=== PATIENT | female | born 1970 | race Caucasian/White ===

== ENCOUNTER 2024-02-16 08:53 | Outpatient (CLI) | payer OTHER, SELFPAY ==
--- NOTE | ~2024-02-16 | CT_ITS ---
EXAMINATION: CT sinus wo con DATE: 02/16/2024 09:45 INDICATION: Sinusitis TECHNIQUE: Computed tomography (CT) of the paranasal sinuses was performed without contrast. Iterativ e reconstruction technique was employed. Exam dose: 401.69 mGy-cm total exam DLP. COMPARISON: None FINDINGS: There is rightward deviation of the nasal septum. There is prominent soft tissue swelling o f the inferior nasal turbinates bilaterally. The ostiomeatal units are patent. There is a single opacified posterior left ethmoid air cell. Otherwise the paranasal sinuses are normally developed and aerated. The mastoid air cells are well-developed and aerated bilaterally. IMPRESSION: Prominent soft tissue swelling of the inferior nasal turbinates Rightward deviation of nasal septum Opacified posterior left ethmoid air cell; the paranasal sinuses, ostiomeatal units and mastoid air c ells otherwise are normally developed and aerated Reviewed, dictated and finalized at Location [facility]. Reviewed, dictated and finalized at location B. IMPRESSION: Prominent soft tissue swelling of the inferior nasal turbinates Rightward deviation of nasal septum Opacified posterior left ethmoid air cell; the paranasal sinuses, ostiomeatal u nits and mastoid air cells otherwise are normally developed and aerated
== END 2024-02-16 08:54 ==
LOC: GOSHIMG 08:55
PROVIDERS: PCP Family Medicine; Visit Provider Otolaryngology
DX: R09.81 Nasal congestion (principal); J34.2 Deviated nasal septum
CPT/HCPCS: 70486

== ENCOUNTER 2025-06-09 08:08 | Outpatient (CLI) | payer OTHER, SELFPAY ==
--- NOTE | ~2025-06-09 | DEXA_ITS ---
Bone Density Report Name: AYAH SARGENT Age: 55 Sex: Female Ethnicity: White Date of : 1970 Indication: postmenopausal; screening for osteoporosis; prior fracture; Referring Provider: GODFREY VILLALOBOS Study: Bone densitometry was performed. Exam Date: June 09, 2025 Accession number: [id number] Bone Density: Region BMD T-score Z-score Classification AP Spine(L1-L4) 0.928 -1.1 0.1 Osteopenia Femoral Neck (Right) 0.651 -1.8 -0.7 Osteopenia Total Hip (Right) 0.871 -0.6 0.1 Normal World Health Organization criteria for BMD impression classify patients as: Normal (T-score at or above -1.0), Osteopenia (T-score between -1.0 and -2.5), or Osteoporosis (T-score at or below -2.5). 10-year Fracture Risk: FRAX not reported because: Prior hip or vertebral fracture Clinical Information Provided by Patient: Have had a previous hip or vertebral fracture Has had a low trauma fracture Smokes Has used the following medications: Calcium Patient maximum height was 62 Menopause Age: 49 Drinks caffeinated beverages Onset of menses at age 11 Number of children 2 Impression: The patient has low bone mass, based on the Right Femoral Neck T-score. The patient has risk factors, including: smoking, previous fracture. Discussion: INCREASED RISK OF FRACTURE DUE TO HISTORY OF FRACTURE. The patient's previous fracture puts the patient at high risk of a future fracture. In untreated patients, the risk of osteoporotic fracture increases approximately two-fold for each 1.0 SD decrease in T-score. Low bone density is not the only risk factor for fracture; also consider factors such as patient's age, frailty or poor health, risk of falling, risk of injury, previous osteoporotic fracture, family history of osteoporosis, cigarette smoking, low body weight, etc. Not everyone with a low trauma fracture has osteoporosis; osteomalacia and other metabolic bone disorders should also be considered. Patients who have osteoporosis should be evaluated for specific diseases and conditions (secondary causes) that may cause or contribute to bone loss and fracture risk. National Osteoporosis Foundation (NOF) recommends pharmacologic intervention for patients with a prior hip or vertebral fracture regardless of BMD T-score. The patient should follow a healthful lifestyle (good nutrition with adequate calcium and vitamin D, and appropriate weight-bearing exercise). Follow-Up: Consider a repeat BMD and Vertebral Fracture Assessment (VFA) exam in 2 years or sooner if medically necessary, to reassess this patient's status. Reported by: ILNDA on 06/09/2025 8:43:00 AM. Reviewed, dictated and finalized at location A.
--- NOTE | ~2025-06-09 | MM_ITS ---
EXAMINATION: MM screening rosana BI w leslie HISTORY: Screening TECHNIQUE: Craniocaudal and mediolateral oblique 3-D tomosynthesis images were obtained and synthetic 2-D images were generated. CAD analysis was submitted and interpreted. COMPARISON: 09/20/2014. BREAST PARENCHYMAL COMPOSITION: The breasts are heterogeneously dense, which may obscure small masses . FINDINGS: There is no evidence of suspicious mass, calcification, or architectural distortion to sug gest malignancy in either breast. IMPRESSION: 1. No mammographic evidence of malignancy. 2. Recommend routine screening mammography in one year. BI-RADS Category 1: Negative Reviewed, dictated and finalized at location B.
--- OUTSIDE RECORDS SUMMARY | 2025-06-09 08:16 | XMS_ITS | Patient Health Record ---
Author Organization [facility] [place] ([address]) Address [address] [place] [address] Care Team Providers Care Utility Helicopter Repairer Name Role Phone Mitch GRIFFITH, Chaparro Primary Care Provider Min To Unavailable [phone] Dr. Delmar Rodriguez Unavailable [phone] Allergies Allergen (clinical drug ingredient) Drug/Non Drug Allergy documented on EMR Reaction Allergy Type Onset Date Status penicillamine penicillAMINE Unknown Drug Allergy Active codeine Codeine Vomiting Drug Allergy Active Reason For Referral No Information Medications Medication SIG (Take, Route, Frequency, Duration) Notes Start Date End Date Status CeleXA *Please review a nd pick correct strength-formulati on from Sellobuyan options. If intended option is not shown, discontinue and re-order from Quick Search* Active Spironolactone *Please review a nd pick correct strength-formulati on from Plan B Acqusitionsspan options. If intended option is not shown, discontinue and re-order from Quick Search* Active Ondansetron 4 MG 1 tab Orally Once a day; Duration: 30 days As needed for migraine 06/10/2024 Active FLUTICASONE NASAL 50 mcg/inh 2 spray(s) in each nostril 2 times a day; Duration: 30 days Active Fexofenadine HCl 180 MG 1 tablet Orally Once a day; Duration: 30 days 08/16/2024 Active Cetirizine HCl 10 MG 1 tab(s) orally once a day; Duration: 30 days 04/19/2024 Active NASAL WASHES N/A as directed intranasally as needed; Duration: 30 days Active Fluticasone Propionate 50 MCG/ACT 2 spray(s) in each nostril 2 times a day; Duration: 30 days 04/19/2024 Active CETIRIZINE 10 mg 1 tab(s) orally once a day; Duration: 30 days Active Rizatriptan Benzoate 10 MG 1 tablet Orally once, may repeat x1 after 2-4 hours; Duration: 30 days As needed for migraine 06/10/2024 Active Social History Tobacco Use: Social History Observation Description Date Details (start date - stop date) Never Smoker NA - NA Smoking Smart Form: Question Answer Notes Are you a: never smoker Additional Findings:Tobacco Non-User Current non -smoker Tobacco Control (Standard) Question Answer Notes Tobacco use: Nonsmoker Problems Problem Type SNOMED Code ICD Code Onset Dates Problem Status W/U Status Risk Notes Problem Allergy to penicillin (52756607) Allergy status to penicillin (Z88.0) Active confirmed Problem Chronic migraine without aura, non-refractory (disorder) (270428368935344) Migraine without aura, not intractable, without status migrainosus (G43.009) Active confirmed Problem Migraine with aura (5815021) Migraine with aura, not intractable, without status migrainosus (G43.109) Active confirmed Problem Chronic migraine without aura, non-intractable (203724449453025) Chronic migraine without aura, not intractable, without status migrainosus (G43.709) Active confirmed Problem Chronic allergic conjunctivitis (43266863) Other chronic allergic conjunctivitis (H10.45) Active confirmed Problem Allergic rhinitis caused by pollen (disorder) (28231351) Allergic rhinitis due to pollen (J30.1) Active confirmed Problem Allergic rhinitis (37038368) Other allergic rhinitis (J30.89) Active confirmed Problem Allergic rhinitis caused by animal hair and dander (248655246999481) Allergic rhinitis due to animal (cat) (dog) hair and dander (J30.81) Active confirmed Problem Headache (71952889) Headache, unspecified (R51.9) Active confirmed Vital Signs Oximetry 96 % 08/16/2024 Blood pressure diastolic 81 mm Hg 08/16/2024 Height 62 in 08/16/2024 Blood pressure systolic 114 mm Hg 08/16/2024 Weight 114.2 lbs 08/16/2024 BMI 20.89 kg/m2 08/16/2024 Encounters Encounter Location Date Provider Diagnosis [facility] [address] [place] [address] 08/04/2024 Delmar Rodriguez [address] [address] 06/10/2024 Delmar Rodriguez Migraine without aur a, not intractable, without status migrainosus G43.[address] [address] 08/16/2024 Min March Allergic rhinitis du e to pollen J30.1 ; Allergic rhinitis due to animal (cat) (dog) hair and dander J30.81 ; Other allergic rhinitis J30.89 ; Other chronic allergic conjunctivitis H10.45 ; Allergy status to penicillin Z88.0 and Headache, unspecified R51.9 Assessments Encounter Date Diagnosis (ICD Code) Assessment Notes Treatment Notes Treatment Clinical Notes Section Notes 06/10/2024 Migraine without aura, not intractable, without status migrainosus (ICD-10 - G43.009) -Abortive treatment plan: Rizatriptan 10 mg. Ondansetron ODT 4 mg 1 pill once prn migraine. #15 with 1 refill. Patient counseled r.e. potential side effects.-Prevent arturo treatment plan: Discussed magnesium, riboflavin. For now we will focus on finding an effective abortive medication and not prescribe preventive medication. -Educated the patient on migraine lifestyle recommendations. I recommended the following measures: avoid known triggers of migraine, drink > 100 fluid ounces of non-caffeinated fluid daily, limit caffeine to 2 servings/day, sleep 7-8 hours/night and address any sleep concerns with us and report symptoms of snoring or fatigue; healthy management of stress; avoid treating headaches more than 2 days/week with abortive medication unless approved in treatment plan; can take Riboflavin 400 mg and Magnesium 500 mg daily as supplements; keep scheduled follow-up appointments 08/16/2024 Allergic rhinitis due to pollen (ICD-10 - J30.1) Yaquelin clearly suffers from atopic disease based upon our skin testing and clinical history. Accordingly, we have introduced a new, aggressive medication regimen, discussed nasal washes and allergy-specific avoidance measures. She is currnently happy with currnet control. Noted increased sleepiness with Zyrtec so advised switch to Allyn. Otherwise consider SCIT if symptoms worsen. Return in one year for E&M 08/16/2024 Allergic rhinitis due to animal (cat) (dog) hair and dander (ICD-10 - J30.81) Follow allergen avoidance, meds and consider SCIT as an adjunctive treatment to current regimen 08/16/2024 Other allergic rhinitis (ICD-10 - J30.89) Follow allergen avoidance, meds and consider SCIT as an adjunctive treatment to current regimen 08/16/2024 Other chronic allergic conjunctivitis (ICD-10 - H10.45) Given ocular signs and symptoms I encouraged allergy avoidance measures and meds as above. If symptoms persist, consider adding additional medications including intraocular antihistamine/ma st cell stabilizer, PRN and consider SCIT as an adjunctive measure 08/16/2024 Allergy status to penicillin (ICD-10 - Z88.0) Reports rash as a child after taking PCN. Told by mom to avoid since. Details otherwise vague. Would highly consider PCN testing. Otherwise, continue absolute avoidance 08/16/2024 Headache, unspecified (ICD-10 - R51.9) Lifelong history of headaches. Continue with Dr. Rodriguez Plan Of Treatment No Information Insurance Providers Payer Name Payer Address Payer Phone Subscriber Number Group Number Insured Name Patient Relationship to Insured Coverage Start Date Coverage End Date [facility] [address] [place] [address] [id number] Desirae Yaquelin carrillo Self - patient is the insured 4 Medical (General) History Medical History History ICD Code Allergic rhinitis due to pollen J30.1 Allergic rhinitis due to animal (cat) (d og) hair and dander J30.81 Other allergic rhinitis J30.89 Other chronic allergic conjunctivitis H1 0.45 Allergy status to penicillin Z88.0 Headache, unspecified R51.9 Surgical History Surgery Date(Month/Year) Hip Replacement 05/06/2021 Skin Cancer Removal 11/17/2014
--- OUTSIDE RECORDS SUMMARY | 2025-06-09 08:16 | XMS_ITS ---
Author Organization [facility] ([address]) Address [address] [place] [address] Care Team Providers Care Train Electronic Technician Name Role Phone Mitch GRIFFITH, Chaparro Primary Care Provider UnavailMin Chandler Unavailable [phone] Dr. Delmar Rodriguez Unavailable [phone] REASON FOR VISIT Headache follow-up Encounters Encounter Location Date Provider Diagnosis [facility] [address] [place] [address] 07/22/2024 Delmar Rodriguez Plan Of Treatment No Information Progress Notes * Yaquelin JENNINGSDOB: 1970 (55 yo F)Acc No.[id number]:07/22/2024 Progress Notes Patient: Emeka Yaquelin ALATORRE Provider: Emil Rodriguez MD :1970 A ge:54 Y S ex:Female Date:07/22/2024 Address:[address], [place] [facility] Pcp:Chaparro Meyer MD Subjective: * Chief Complaints: * 1 . Headache follow-up. * Medical History: Objective: * Vitals: Assessment: Plan: * Treatment: * Billing Information: * Visit Code: * Procedure Codes: * Electronic signature of Dr. Delmar Rodriguez MD on 06/09/2025 at 08:15 AM CDT Sign off status: Pending * Provider: Emil Rodriguez MD Date: 0 07/22/2024 Generated for Albert ortez/Eric/Armin on: 0 06/09/2025 08:15 AM CDT
--- OUTSIDE RECORDS SUMMARY | 2025-06-09 08:16 | XMS_ITS | Encounter Summary ---
Author Organization [facility] Address [address] [place] [address] Care Team Providers Care Hat Liner Name Role Phone Kajal Singh MD Primary Care Provider Unavailable Encounter Details Date Type Department Care Team (Late st Contact Info) Description 09/20/2017 [place] [address] Kajal Singh MD Social History Tobacco Use Types Packs/Day Years Used Date Smoking Tobacco: Never Assessed Comments Unknown Sex and Gender Information Value Date Recorded Sex Assigned at Not on file Legal Sex Female 6:26 PM CDT Gender Identity Not on file Sexual Orientation Not on file documented as of this encounter Plan of Treatment Not on file documented as of this encounter Visit Diagnoses Not on filedocumented in this encounter Care Teams Hat Liner Relationship Specialty Start Date End Date Kajal Singh MD PCP - General 12/01/15 documented as of this encounter
--- OUTSIDE RECORDS SUMMARY | 2025-06-09 08:16 | XMS_ITS ---
Author Organization [employer] [place] ([address]) Address [address] [place] [address] Care Team Providers Care 2Nd Grade Teacher Name Role Phone Mitch GRIFFITH, Chaparro Primary Care Provider Min To Unavailable [phone] Dr. Delmar Rodriguez Unavailable [phone] Allergies Allergen (clinical drug ingredient) Drug/Non Drug Allergy documented on EMR Reaction Allergy Type Onset Date Status penicillamine penicillAMINE Unknown Drug Allergy Active codeine Codeine Vomiting Drug Allergy Active REASON FOR VISIT NO SHOW Medications Medication SIG (Take, Route, Frequency, Duration) Notes Start Date End Date Status CETIRIZINE 10 mg 1 tab(s) orally once a day; Duration: 30 days Not-Taking Ondansetron 4 MG 1 tab Orally Once a day; Duration: 30 days As needed for migraine 06/10/2024 Active FLUTICASONE NASAL 50 mcg/inh 2 spray(s) in each nostril 2 times a day; Duration: 30 days Not-Taking NASAL WASHES N/A as directed intranasally as needed; Duration: 30 days Active Rizatriptan Benzoate 10 MG 1 tablet Orally once, may repeat x1 after 2-4 hours; Duration: 30 days As needed for migraine 06/10/2024 Active CeleXA *Please review and pick correct strength-formulat ion from Medispan options. If intended option is not shown, discontinue and re-order from Quick Search* Active Cetirizine HCl 10 MG 1 tab(s) orally once a day; Duration: 30 days 04/19/2024 Active Spironolactone *Please review and pick correct strength-formulat ion from HomeStarsan options. If intended option is not shown, discontinue and re-order from Quick Search* Active Fluticasone Propionate 50 MCG/ACT 2 spray(s) in each nostril 2 times a day; Duration: 30 days 04/19/2024 Active Social History Tobacco Use: Social History Observation Description Date Details (start date - stop date) Never Smoker NA - NA Smoking Smart Form: Question Answer Notes Are you a: never smoker Additional Findings:Tobacco Non-User Current non -smoker Tobacco Control (Standard) Question Answer Notes Tobacco use: Nonsmoker Problems Problem Type SNOMED Code ICD Code Onset Dates Problem Status W/U Status Risk Notes Problem Chronic migraine without aura, non-intractab le (834873531032 100) Chronic migraine without aura, not intractable, without status migrainosus (G43.709) Active confirmed Problem Migraine with aura (1852530) Migraine with aura, not intractable, without status migrainosus (G43.109) Active confirmed Encounters Encounter Location Date Provider Diagnosis [facility] [address] [place] [address] 08/04/2024 Delmar Rodriguez Plan Of Treatment Next Appt Details Follow Up: 4 Weeks, Reason: Evaluation and Management Progress Notes * Yaquelin JENNINGSDOB: 1970 (55 yo F)Acc No.[id number]:08/04/2024 Progress Notes Patient: Karl LAZOya Provider: Emil Rodriguez MD :1970 A ge:54 Y S ex:Female Date:08/04/2024 Address:[facility] [address] [facility] Pcp:Chaparro Meyer MD Subjective: * Chief Complaints: * 1 . NO SHOW. * ROS: A LLERGY: runny nose Y es. i tchy eyes Y es. e ar fullness Y es. s inus congestion Y es. D enies all Y es. C ONSTITUTIONAL: night sweats Y es. w eight gain Y es. f ever?Yes. f atigue Y es. E NT: hearing loss Y es. s inus pain Y es. ? R ESPIRATORY: Positive for P atient denies shortness of breath or wheezing. O PHTHALMOLOGY: itching Y es. d iminished vision Y es. e ye irritation Y es. E NDOCRINOLOGY: fatigue Y es. s leep disturbance Y es. ? C ARDIOLOGY: dizziness Y es. c hest pain N o. G ASTROENTEROLOGY: nausea Y es. i ndigestion Y es. U ROLOGY: Positive for P atient denies urinary incontinence or urinary dysfunction. D ERMATOLOGY: mole Y es. d ry or sensitive skin Y es. s kin cancer Y es. N EUROLOGY: headache Y es. m michelle loss Y es. d izziness?Yes. H EMATOLOGY/LYMPH: Positive for P atient denies history of excessive bruising or bleeding diasthesis. M USCULOSKELETAL: joint stiffness Y es. j oint pain Y es. j oint swelling Y es. P SYCHOLOGY: anxiety Y es. * Medical History: A llergies, OA, Migraine. * Surgical History: H ip Replacement 05/06/2021, Skin Cancer Removal 11/17/2014. * Family History: F ather: , Yes. M other: alive, Yes. P aternal Grand Father: Yes. P aternal Grand Mother: Yes. M aternal Grand Father: Yes. M aternal Grand Mother: Yes. S iblings: Yes. C hildren: Yes. 1 brother(s) - healthy. 1 son(s) , 1 daughter(s) - healthy. . father CHF, Mother allergies. * Social History: M arital Status What is your marital status? m arried A lcohol Screening Do you ever drink alcoholic beverages? Y es Number of drinks per occasion: 2 Frequency? W eekly C affeine: Yes. S moking Have you ever smoked tobacco: f ormer smoker Additional Findings: Tobacco Non-User C urrent non-smoker, but past smoking history unknown How old were you when you started smoking? 2 0 How old were you when you quit smoking? 2 1 How many cigarettes a day did you smoke? l ess than 5 Are you a : f ormer smoker S moking Smart Form Are you a: n ever smoker Additional Findings:Tobacco Non-User C urrent non-smoker R ecreational drug use Have you ever used recreational drugs? Y es What kind of drugs? m arijuana D etails on consumption of certain products? Do you regularly consume products with aspartame; Equal or NutraSweet? Y es Do you regularly consume products with artificial coloring??No Have you ever noticed worsening of your rash with these food items? N o E xercise What kind(s) of exercise do you perform regularly? w alking,jogging,weight training,yoga,cardio,other,age-appropriate participation in physical activites How often do you perform this exercise? d aily A re any of the following personal care products containing fragrance, dye or preservatives used regularly? Shampoo: Y es Conditioner: Y es Soap: Y es Laundry Detergent: Y es Fabric Softener: Y es Deodorant: Y es Perfume, cologne, after shave: Y es Air freshners or other scented products: Y es Hair coloring dyes or rinses: Y es Other: Y es O ccupation Are you currenly employed? 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 number of years?20 Do you believe that your current or previous occupation has any bearing on your illness? N o Please describe the effect of your illness on your job p oor concentration Do you have any pending or planned legal action against your current or former employer which pertains to your medical illness? N o Do you anticipate that your evaluation will be used in any legal action against your current employer or former employer? N o Have you had any job with high exposure to fumes, chemicals, dust or other noxious substances? N o Are you currently a student? Y es Please describe the effect of your illness on your school performance: p oor concentration E nvironmental History Living environment: p rivate home Where is the home located? [place] Age of home: 2 0 How long have you lived there? 5 years or more How many people live in the home? 2 H ome description Basement: Y es Any water damage in basement? Y es Smokers in the home? N o Smokers outside the home? N o Air Conditioning? Y es Central Air? Y es Forced air heating? Y es Gas or electric? e lectric Fireplace? Y es Used how often? w inter months only Wood burning stove? N o Do you vacuum the home? Y es Air purification systems? N o Pillow and mattress dust-proof encasings? N o Do you use a humidifier? Y es Whole house or room? r oom humidifier Does it have a humidistat? N o Is it used year-round, seasonal, or as needed? a s needed Is the humidifier cleaned regularly? Y es Do you own any pets? Y es What kind(s)? (click all that apply) c ats Where do your pets sleep? a nywhere in the house Fabric softeners used? Y es Plants in the home? Y es How many? 1 0 Where are they kept? o utside,other room in home Is there carpeting in your bedroom? Y es Age of carpet? 3 Do you have bzql-wo-[id number] carpeting? N o What is the age of your mattress (years)? 4 What material(s) are used to manufacture your bedding and pillow? f eather,natural fiber (e.g. cotton) What is the age of your pillow (years)? 6 What material are your bedding items made of? n atural fiber (e.g. cotton) Do you sleep with quilts or blankets or a duvet? Y es What material? n atural fiber (e.g. cotton) How many cats? 1 T obacco Control (Standard) Tobacco use: N onsmoker * Medications: T aking CeleXA , Notes to Pharmacist: *Please review and pick correct strength-formulation from Medispan options. If intended option is not shown, discontinue and re-order from Quick Search*, Taking Spironolactone , Notes to Pharmacist: *Please review and pick correct strength-formulation from Medispan options. If intended option is not shown, discontinue and re-order from Quick Search*, Taking Cetirizine HCl 10 MG Tablet 1 tab(s) orally once a day , Taking Fluticasone Propionate 50 MCG/ACT Suspension 2 spray(s) in each nostril 2 times a day , Taking NASAL WASHES N/A 1 quart of sterilized tap water or distilled water, 1 tsp NaCl, 1 pinch of baking soda as directed intranasally as needed , Taking Rizatriptan Benzoate 10 MG Tablet 1 tablet Orally once, may repeat x1 after 2-4 hours As needed for migraine, Taking Ondansetron 4 MG Tablet Disintegrating 1 tab Orally Once a day As needed for migraine, Not-Taking/PRN CETIRIZINE 10 mg tablet 1 tab(s) orally once a day , Not-Taking/PRN FLUTICASONE NASAL 50 mcg/inh spray 2 spray(s) in each nostril 2 times a day * Allergies: C odeine: Vomiting, penicillAMINE. Objective: * Vitals: Assessment: Plan: * Treatment: * Follow Up: 4 Weeks (Reason: Evaluation and Management) * Billing Information: * Visit Code: * Procedure Codes: * Electronic signature of Dr. Delmar Rodriguez MD on 06/09/2025 at 08:16 AM CDT Sign off status: Pending * Provider: Emil Rodriguez MD Date: 0 08/04/2024 Generated for Albert ortez/Eric/Armin on: 06/09/2025 08:16 AM CDT
--- OUTSIDE RECORDS SUMMARY | 2025-06-09 08:16 | XMS_ITS | Clinical Summary ---
Author Organization [facility] Address [address] [place] [address] Care Team Providers Care Chuck Tender Name Role Phone Unavailable Primary Care Provider Unavailabl e Social History Tobacco Use Types Packs/Day Years Used Date Smoking Tobacco: Never Assessed Comments Unknown Sex and Gender Information Value Date Recorded Sex Assigned at Not on file Legal Sex Female 6:26 PM CDT Gender Identity Not on file Sexual Orientation Not on file Plan of Treatment Health Maintenance Due Date Last Done Comments Cervical Cancer Screening Pa p Smear (Age 30 to 64) Every 3 Years 1969 Colorectal Cancer Screening Colonoscopy (10 Years) 1969 Annual Physical 1972 Hepatitis C 1987 DTaP, Tdap and Td Vaccines ( 1 - Tdap) 1988 Hepatitis B Vaccines (1 of 3 - 19+ 3-dose series) 1988 Cervical Cancer Screening Pa p with HPV Testing (Age 30 to 64) Every 5 Years 1999 Cervical Cancer Screening with HPV 1999 Mammogram Screening 2009 Pneumococcal Vaccine: 50+ Ye ars (1 of 1 - PCV) 2019 Zoster Vaccines (1 of 2) 2019 COVID-19 Vaccine (2023-2 5 season) 2024 Meningococcal B Vaccine Aged Out No l onger eligible based on patient's age to complete this topic Meningococcal Vaccine Aged Out No tara niranjan eligible based on patient's age to complete this topic RSV Immunizations Under 20 Months Aged Out No longer eligible based on patient's age to complete this topic
--- OUTSIDE RECORDS SUMMARY | 2025-06-09 08:16 | XMS_ITS | Referral Summary ---
Author Organization [facility] Address [facility] [place] [address] Care Team Providers Care International Logistics Manager Name Role Phone Chaparro Meyer MD Primary Care Provider + [phone] Allergies Active Allergy Reactions Criticality Noted Date Comments Codeine Nausea only Low Penicillins Unknown Believes may be a rash, was as a child Medications citalopram (CeleXA) 10 mg tabletIndicatio ns:Generalized Anxiety Disorder Take 10 mg by mouth nightly Active spironolactone (ALDACTONE) 50 mg tabletIndicatio ns:acne Take 100 mg by mouth nightly 0 Active tretinoin (RETIN-A) 0.05 % cream Apply 1 application topically nightly 0 Active diclofenac sodium (VOLTAREN) 1 % gel Apply topically as needed Active calcium carbonate (TUMS) 500 mg calcium (200 mg of elemental calcium) chewable tablet Take 1 tablet by mouth as needed for indigestion or heartburn Active cetirizine (ZyrTEC) 10 mg tablet Take 10 mg by mouth as needed for allergies Active fluticasone propionate (FLONASE) 50 mcg/actuation nasal spray Administer 1 spray into each nostril nightly Active dapsone 5 % topical gel Please apply to face as needed. 30DS 1 Active Active Problems Problem Noted Date Diagnosed Date Retention of urine 05/24/2021 Acute hyponatremia 2021 Postoperative urinary retention 2021 Primary osteoarthritis of left hip 03/22/2021 Overview (03/22/2021): Added automatically from request for surgery [id number] Nail dystrophy 12/25/2020 Overview (07/02/2021): Last Assessment & Plan: Bilateral toenails - Appears to be secondary to trauma - Avoid ill-fitting shoes - Use acetone-free nailpolish remover - Allow toenails to grow out - Not concerning for onychomycosis today Diffuse photodamage of skin 07/30/2016 Other skin changes due to ch ronic exposure to nonionizing radiation 07/30/2016 Lichenoid keratosis 06/03/2014 Other seborrheic keratosis 06/03/2014 Acne 07/05/2011 History of basal cell carcinoma 07/05/2011 Melanocytic nevus 07/05/2011 Immunizations Immunization Administration Dates Next Due Pfizer SARS-CoV-2 Monovalent Vaccination (12+ Yrs) PURPLE 03/15/2021,02/13/2021 Social History Tobacco Use Types Packs/Day Years Used Date Smoking Tobacco: Never Smokeless Tobacco: Never Alcohol Use Standard Drinks/Week Comments Yes 0 (1 standard drink = 0.6 oz pur e alcohol) AUDIT-C Answer Date Recorded Q1: How often do you have a drink containing alc ohol? 2-3 times a week 05/15/2021 Q2: How many drinks containi ng alcohol do you have on a typical day when you are drinking? 1 or 2 05/15/2021 Q3: How often do you have si x or more drinks on one occasion? 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 on file Not on file Not on file Last Filed Vital Signs Vital Sign Reading Time Taken Comments Blood Pressure 136/83 05/18/2021 11:11 AM CDT Pulse 85 05/18/2021 11:11 AM CDT Temperature 37 C (98.6 F) 2021 7:30 AM CDT Respiratory Rate 16 2021 7:30 AM CDT Oxygen Saturation 99% 2021 7:30 AM CDT Inhaled Oxygen Concentration - - Weight 49.9 kg (110 lb) 05/18/2021 11:11 AM CDT Height 157.5 cm (5' 2) 05/18/2021 11:11 AM CDT Body Mass Index 20.12 05/18/2021 11:11 AM CDT Plan of Treatment Not on file Medical Devices Implanted Type Area Provider Engagement Executive Device Identifier Shelf Expiration Date Model / Serial / Lot [employer] [id number] Procotyl Prime 50mm Shell Acetabular Sterile - Sna - [id number] Implanted:Qty: 1 on 05/15/2021 by Aniket Gallardo MD at [facility] Other - see comments Left: Hip [employer] [id number] 03/20/2029 [id number] / NA / [id number] [employer] [id number] Procotyl Prime 36mm Liner Acetabular Sterile Latex Free - Sna - [id number] Implanted:Qty: 1 on 05/15/2021 by Aniket Gallardo MD at [facility] Other - see comments Left: Hip [employer] [id number] 04/05/2029 [id number] / NA / [id number] [employer] [id number] r Tl2 Hip 1 High Offset Stem Femoral Sterile Latex Free - Sna - [id number] Implanted:Qty: 1 on 05/15/2021 by Aniket Gallardo MD at [facility] Other - see comments Left: Hip [employer] [id number] 12/02/2027 [id number] / NA / [id number] [employer] [id number] 36mm -3.5mm 10/30 Short Neck Taper Head Femoral Biolox Delta - Sna - [id number] Implanted:Qty: 1 on 05/15/2021 by Aniket Gallardo MD at [facility] Other - see comments Left: Hip [employer] [id number] 12/29/2028 [id number] / NA / [id number] [employer] [id number] Dynasty Lineage 6.5mm 40mm Acetabular Screw Bone Biofoam - Sna - [id number] Implanted:Qty: 1 on 05/15/2021 by Aniket Gallardo MD at [facility] Screw Left: Hip [employer] [id number] 07/17/2026 [id number] / NA / [id number] [employer] [id number] Dynasty Lineage 6.5mm 25mm Acetabular Screw Bone [facility] [place]am - Sna - [id number] Implanted:Qty: 1 on 05/15/2021 by Aniket Gallardo MD at [facility] Screw Left: Hip [employer] [id number] 11/20/2028 [id number] / NA / [id number] Insurance [facility] STUDENT RESOURCES [facility] HMO/PPO Address: [address] [place] [address] [employer] [facility] Address: [address] [place] [address] [place] [address] [facility] STUDENT RESOURCES [facility] HMO/PPO Address: [facility] [id number] [place] [address] Advance Directives For more information, please contact: [phone] * Full Code (Latest Code Status on File) Date Activated Date Inactivated Comments 05/15/2021 2:20 PM 2021 5:25 PM Care Teams International Logistics Manager Relationship Specialty Start Date End Date Chaparro Meyer MD PCP - General 08/04/13
--- OUTSIDE RECORDS SUMMARY | 2025-06-09 08:16 | XMS_ITS | Clinical Summary ---
Author Organization [facility] Address [address] [place] [address] Care Team Providers Care Food Beverage Supervisor Name Role Phone Chaparro Meyer MD Primary Care Provider [phone] Source Comments [facility],non-owned Affiliates and Associated Physician Practices is amultiple site organization consisting of ambulatory clinics and hospital sitesin [place], [place], [place] and [place]. This disclosure is being madepursuant to the Care Everywhere program and may not contain all information available regarding this patient. Last updated 18.[facility] demandmart Allergies Active Allergy Reactions Criticality Noted Date Comments Codeine Nausea and/or Vomiting 07/05/2011 Penicillamine Other 09/06/2024 Penicillins Other 07/05/2011 Unsure-she was a child when told not to take, Reaction as a child; does not know reaction Medications * Be aware that medications may not be up to date on this document. Alwaysverify current medications with the patient. Citalopram Hydrobromide (CELEXA PO) Active aspirin EC (Ecotrin) 81 MG tablet Take 1 (one) tablet by mouth 2 times daily Active calcium carbonate (Calci-Chew) 1250 (500 Ca) MG chew tablet Take 1 (one) tablet by mouth as needed Active cetirizine (ZyrTEC) 10 MG tablet Take 1 (one) tablet by mouth as needed Active fluticasone propionate (Flonase) 50 MCG/ACT nasal spray Parnell 1 (one) spray into the nose at bedtime Active fluorouracil (Efudex) 5 % creamIndications: Basal cell carcinoma (BCC) of skin of nose Apply to affected area twice daily for six weeks. 40 g 3 Active rizatriptan (Maxalt) 10 MG tablet TAKE 1 TABLET BY MOUTH ONCE DAILY NEEDED FOR MIGRAINE HEADACHE . MAY REPEAT DOSE ONE TIME IF NEEDED AFTER 2-4 HOURS Active fexofenadine (Allyn) 180 MG tablet 1 tablet Orally Once a day for 30 days 4 Active hydroquinone (Lustra; Eldoquin) 4 % creamIndications: COSMETIC USE Apply to affected area twice daily. Reasons: COSMETIC USE 30 g 2 4 Active tretinoin (Retin-A) 0.05 % creamIndications: Acne vulgaris APPLY PEA SIZED AMOUNT TO FACE ONCE NIGHTLY 45 g 7 4 Active spironolactone (Aldactone) 100 MG tabletIndications :Acne vulgaris Take 2 tablets by mouth once daily 60 tablet 11 4 Active dapsone (Aczone) 5 % gelIndications:Ac ne vulgaris Please apply to face daily. . 30DS 90 g 3 5 Active Active Problems Problem Noted Date Diagnosed Date Actinic keratosis 12/25/2020 Assessment & Plan (12/25/2020 9:52 AM STRIPPING CUTTER AND WINDER): - Premalignant potential discussed - Cryotherapy performed today x4 lesions on upper chest (see procedure note) - Wound care reviewed, post-cryo handout given - Sun protection reviewed Nail dystrophy 12/25/2020 Assessment & Plan (12/25/2020 9:52 AM STRIPPING CUTTER AND WINDER): Bilateral toenails - Appears to be secondary to trauma - Avoid ill-fitting shoes - Use acetone-free nailpolish remover - Allow toenails to grow out - Not concerning for onychomycosis today Lentigines 12/25/2020 Assessment & Plan (12/25/2020 9:50 AM STRIPPING CUTTER AND WINDER): - Benign, patient reassured - Skin cancer, sun protection, and photoaging discussed - Sunscreen handout provided History of nonmelanoma skin cancer 12/25/2020 Assessment & Plan (12/25/2020 9:50 AM STRIPPING CUTTER AND WINDER): - No evidence of recurrence at previous sites - Sun protection education reviewed, handout provided - Annual FBSE recommended Lichen planus-like keratosis (LPLK) 12/25/2020 Assessment & Plan (12/25/2020 9:53 AM STRIPPING CUTTER AND WINDER): L congregation x1 - Benign, reassured patient - If changes in size, shape, or color, advised patient to come to clinic for re-evaluation Other skin changes due to ch ronic exposure to nonionizing radiation 07/30/2016 Diffuse photodamage of skin 07/30/2016 Other seborrheic keratosis 06/03/2014 Assessment & Plan (12/25/2020 9:53 AM STRIPPING CUTTER AND WINDER): - Benign, reassured patient. Lichenoid keratosis 06/03/2014 Personal history of other malignant neoplasm of skin 07/05/2011 Acne 07/05/2011 Assessment & Plan (12/25/2020 9:50 AM STRIPPING CUTTER AND WINDER): Well-controlled, not active on exam today - Decrease Spironolactone to 50 mg daily - Continue Tretinoin 0.05% cream to face at night (pt using every other night currently) Melanocytic nevus 07/05/2011 Nevus 07/05/2011 History of basal cell carcinoma 07/05/2011 Family History Medical History Relation Name Comments None Known Brother None Known Father None Known Maternal Aunt None Known Maternal Grandfather None Known Maternal Grandmother None Known Maternal Uncle None Known Mother None Known Other None Known Paternal Aunt None Known Paternal Grandfather None Known Paternal Grandmother None Known Paternal Uncle None Known Sister Asthma Neg Hx CVA Neg Hx Cancer - Breast Neg Hx Cancer - Other Neg Hx Cancer - Skin, Melanoma Neg Hx Cancer - Skin, Non Melanoma Neg Hx Eczema Neg Hx Hemophilia Neg Hx Psoriasis Neg Hx Relation Name Status Comments Brother Father Maternal Aunt Maternal Grandfather Maternal Grandmother Maternal Uncle Mother Other Paternal Aunt Paternal Grandfather Paternal Grandmother Paternal Uncle Sister Social History Tobacco Use Types Packs/Day Years Used Date Smoking Tobacco: Never Smokeless Tobacco: Never Tobacco Cessation:Counseling Given: Not Answered Comments Unknown Sex and Gender Information Value Date Recorded Sex Assigned at Not on file Legal Sex Female 5:28 PM STRIPPING CUTTER AND WINDER Gender Identity Not on file Sexual Orientation Not on file Last Filed Vital Signs Vital Sign Reading Time Taken Comments Blood Pressure 110/78 01/07/2018 9:22 AM STRIPPING CUTTER AND WINDER Pulse 96 01/07/2018 9:22 AM STRIPPING CUTTER AND WINDER Temperature 36.8 C (98.2 F) 01/07/2018 9:22 AM STRIPPING CUTTER AND WINDER Respiratory Rate 16 01/07/2018 9:22 AM STRIPPING CUTTER AND WINDER Oxygen Saturation 98% 01/07/2018 9:22 AM STRIPPING CUTTER AND WINDER Inhaled Oxygen Concentration - - Weight 49.9 kg (110 lb) 01/07/2018 9:22 AM STRIPPING CUTTER AND WINDER Height 157.5 cm (5' 2) 01/07/2018 9:22 AM STRIPPING CUTTER AND WINDER Body Mass Index 20.12 01/07/2018 9:22 AM STRIPPING CUTTER AND WINDER Plan of Treatment Upcoming Encounters Date Type Department Care Team (Late st Contact Info) Description 09/08/2025 10:10 AM CDT Office Visit [facility] - Dermatology [address] [place] [address], [place] [address] Shayy Ness MD [address] [place] [address] [address] [place] [address] Health Maintenance Due Date Last Done Comments COLOGUARD (AGES 45-75) - COL ON CA SCREENING 1969 COLON MONITORING 1969 COLONOSCOPY - COLON CA SCREENING 1969 CT COLONOGRAPHY - COLON CA SCREENING 1969 Colorectal Cancer Screening 1969 FIT - COLON CA SCREENING 1969 FLEX SIG - COLON CA SCREENING 1969 LIPID TESTING 1969 MAMMOGRAM 1969 HIV SCREENING 1984 HEPATITIS C SCREENING 05/13/1987 DTAP/TDAP/TD VACCINES (1 - Tdap) 1988 HEPATITIS B VACCINE (1 of 3 - 19+ 3-dose series) 1988 PAP SMEAR 1990 PNEUMOCOCCAL VACCINE 50+ (1 of 1 - PCV) 2019 ZOSTER VACCINE (1 of 2) 2019 COVID-19 VACCINE (2023-2 5 season) 2024 03/15/2021, 02/13/2021 DEPRESSION SCREENING 11/17/2024 INFLUENZA VACCINE (#1) 2025 HIB VACCINE Aged Out No longer eligi ble based on patient's age to complete this topic HPV VACCINE Aged Out No longer eligi ble based on patient's age to complete this topic MENINGOCOCCAL (Group B) VACCINE SHARED DECISION-MAKING Aged Out No longer eligible based on patient's age to complete this topic MENINGOCOCCAL GROUPS A/C/Y/W VACCINE Aged Out No longer eligible b ased on patient's age to complete this topic [place] [address] [place] [address] ANTHEM ANTHEM ANTHEM Care Teams Food Beverage Supervisor Relationship Specialty Start Date End Date Chaparro Meyer MD [address] [place] [address] PCP - General Family Medicine 01/07/18
--- OUTSIDE RECORDS SUMMARY | 2025-06-09 08:16 | XMS_ITS | Clinical Summary ---
Author Organization [facility] Address [facility] [place] [address] Care Team Providers Care Distilling Department Supervisor Name Role Phone Chaparro Meyer MD Primary Care Provider + [phone] Allergies Active Allergy Reactions Criticality Noted Date [...] (03/22/2021): Added automatically from request for surgery [id number] Nail dystrophy 12/25/2020 Overview (07/02/2021): Last Assessment [...] SARS-CoV-2 Monovalent Vaccination (12+ Yrs) PURPLE 03/15/2021,02/13/2021 Surgical History Surgery Date Site/Laterality Comments SKIN CANCER EXCISION Medical History Medical History Date Comments Malignant neoplasm of skin Cance r, skin Hx Other Medical 2010 Skin Cancer Rem oval Osteoarthritis Osteoarthritis Anxiety Family History Medical History Relation Name Comments Heart disease Father Alcohol abuse Other 1 Family history of Alcoholism; Arthritis Other 2 Family history of Arthritis; Cancer Other 3 Family history of Cancer; Heart disease Other 4 Family history of Heart disease; Hypertension Other 5 Family history of Hypertension; Stroke Paternal Grandmother Anesthesia problems Neg Hx Relation Name Status Comments Father Mother Alive Other 1 Other 2 Other 3 Other 4 Other 5 Paternal Grandmother Social History Tobacco Use Types Packs/Day Years [...] on file Legal Sex Female 3:01 AM EQUIPMENT DETAILER Gender Identity Not on file Sexual Orientation Not on file 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 Not on file Not on file Obstetrics History Last Filed Vital Signs Vital Sign Reading [...] 05/18/2021 11:11 AM CDT Plan of Treatment Health Maintenance Due Date Last Done Comments Breast Cancer Screening-Mammogram 1969 Cervical Cancer Screening 1969 Colon Cancer Screening-Colonoscopy 1969 Depression Screening 1969 Hepatitis C Screening 1969 DTaP/Tdap/Td Vaccine (1 - Tdap) 1980 Hepatitis B Screening 1987 Regular Well Visit/Exam 18-64 1987 Zoster Vaccine (1 of 2) 2019 Covid-19 Vaccine (3 - 2023-2 5 season) 2024 03/15/2021, 02/13/2021 Influenza Vaccine (#1) 2025 Pneumococcal vaccine <65 Aged Out No longer eligible based on patient's age to complete this topic Medical Devices Implanted Type Area Jogger Operator Device Identifier Shelf Expiration Date Model / Serial / Lot [employer] [id number] Procotyl Prime 50mm Shell Acetabular Sterile - Sna - [id number] Implanted:Qty: 1 on 05/15/2021 by Aniket Gallardo MD at [facility] Other - see comments Left: Hip [employer] [id number] 03/20/2029 [id number] / NA / [id number] [employer] [id number] Procotyl Prime 36mm Liner Acetabular Sterile Latex Free - Sna - [id number] Implanted:Qty: 1 on 05/15/2021 by Aniket Gallardo MD at [facility] Other - see comments Left: Hip [employer] [id number] 04/05/2029 [id number] / NA / [id number] [employer] [id number] r Tl2 Hip 1 High Offset Stem Femoral Sterile Latex Free - Sna - [id number] Implanted:Qty: 1 on 05/15/2021 by Aniket Gallardo MD at [facility] Other - see comments Left: Hip [employer] [id number] 12/02/2027 [id number] / NA / [id number] [employer] [id number] 36mm -3.5mm 10/30 Short Neck Taper Head Femoral Biolox Delta - Sna - [id number] Implanted:Qty: 1 on 05/15/2021 by Aniket Gallardo MD at [facility] Other - see comments Left: Hip [employer] [id number] 12/29/2028 [id number] / NA / [id number] [employer] [id number] Dynasty Lineage 6.5mm 40mm Acetabular Screw Bone Biofoam - Sna - [id number] Implanted:Qty: 1 on 05/15/2021 by Aniket Gallardo MD at [facility] Screw Left: Hip [employer] [id number] 07/17/2026 [id number] / NA / [id number] [employer] [id number] Dynasty Lineage 6.5mm 25mm Acetabular Screw Bone Biofoam - Sna - [id number] Implanted:Qty: 1 on 05/15/2021 by Aniket Gallardo MD at [facility] Screw Left: Hip [employer] [id number] 11/20/2028 [id number] / NA / [id number] Insurance [facility] STUDENT RESOURCES [facility] HMO/PPO Address: [address] [place] [address] [employer] [facility] STUDENT RESOURCES [facility] HMO/PPO Address: [address] [place] [address] Advance Directives For more information, please contact: [phone] * Full Code (Latest Code Status on File) Date Activated Date Inactivated Comments 05/15/2021 2:20 PM 2021 5:25 PM Care Teams Distilling Department Supervisor Relationship Specialty Start Date End Date Chaparro Meyer MD PCP - General 08/04/13
== END 2025-06-09 08:09 | disposition home or self-care (01) ==
PROVIDERS: PCP Family Medicine; Visit Provider Obstetrics & Gynecology
DX: Z12.31 Encounter for screening mammogram for malignant neoplasm of breast (principal); Z78.0 Asymptomatic menopausal state; M85.89 Other specified disorders of bone density and structure, multiple sites
CPT/HCPCS: 77063; 77067; 77080